=== PATIENT | female | born 2000 | race Caucasian/White ===

== ENCOUNTER 2021-03-17 14:53 | Outpatient (REF) | payer BC, SELFPAY ==
[2021-03-18 08:25] LABS: HBs Antibody, Quant 30.5 mIU/mL (See Note); Hepatitis B Surface Ab Positive (See Note)
[2021-03-18 09:14] LABS: Measles IgG Antibody Positive (See Note); Mumps Antibody IgG Positive (See Note)
[2021-03-18 09:17] LABS: Rubella IgG Ab (UVM) Positive (See Note)
== END 2021-03-17 14:54 | disposition home or self-care (01) ==
LOC: NCHCN 14:53
PROVIDERS: Visit Provider Nurse Practitioner Family
DX: Z01.84 Encounter for antibody response examination
CPT/HCPCS: 86706; 87340; 86735; 86762; 86765

== ENCOUNTER 2023-10-16 17:03 | Outpatient (CLI) | payer BC, SELFPAY ==
--- NOTE | 2023-10-16 16:47 | DI.RAD_ITS ---
Exam(s) XR CHEST 2V PA LATERAL EXAM: XR CHEST 2V PA LATERAL CLINICAL HISTORY: Cough, R05.9. TECHNIQUE: 2D digital imaging was performed. COMPARISON: No exams were available for comparison FINDINGS: 2 views: Heart size is normal. The mediastinum is not widened. Right lung is clear. There is, however, prominent area of infiltrate in the left lower lobe. Slight blunting of left costophrenic angle may indicate a small amount left pleural fluid. No pneumothorax. IMPRESSION: Prominent area of significant infiltrate in the left lower lobe.Consistent with pneumonia. DATA REPOSITORY: RADIATION DOSE DELIVERED:
--- NOTE | 2023-10-16 17:25 | DI.VRAD_ITS ---
PROCEDURE INFORMATION: Exam: XR Chest Exam date and time: 10/16/2023 4:47 PM Age: 23 years old Clinical indication: Other: Cough TECHNIQUE: Imaging protocol: Radiologic exam of the chest. Views: 2 views. Total images: 4 COMPARISON: No relevant prior studies available. FINDINGS: Lungs: Left lower lobe consolidation. Pleural spaces: No pleural effusion or pneumothorax. Heart/Mediastinum: Unremarkable. Bones/joints: Unremarkable. IMPRESSION: Left lower lobe pneumonia. Dictated and Authenticated by: Alcon Lin MD. Ordering:KEITH KUHN MD
== END 2023-10-16 17:23 ==
PROVIDERS: Visit Provider Nurse Practitioner Family
DX: R05.9 Cough, unspecified (principal)
CPT/HCPCS: 71046